=== PATIENT | female | born 1955 | race Caucasian/White ===

== ENCOUNTER 2018-03-19 08:35 | Outpatient (CLI) | payer OTHER ==
[~2018-03-19 08:35] MED LIST: COZAAR50 MG; HYDROCHLOROTH12.5 M1; SEROQUEL XR50 MG; SIMVASTATIN20 MG; SYNTHROID200 MCG
== END 2018-03-19 08:40 | disposition home or self-care (01) ==
LOC: SONOGRAMA 08:35
DX: E04.2 Nontoxic multinodular goiter (principal)